=== PATIENT | female | born 1955 | race Caucasian/White ===

== ENCOUNTER → 2021-02-09 | Outpatient (CLI) | payer OTHER | END | disposition home or self-care (01) | LOC: COVID19 15:40 | PROVIDERS: ATTEND Internal Medicine | DX: U07.1 COVID-19 (principal) ==

== ENCOUNTER → 2021-11-09 | Day surgery (SDC) | payer MEDICARE ==
[~2021-11-09] VITALS: Ht 172.7 cm; Wt 79.4 kg
[~2021-11-09] MED LIST: FOSAMAX70 M1 PO; PRAVASTATIN SOD20 MG PO; ROPINIROLE HYD0.5 MG PO
[2021-11-09 06:57] VITALS: BP 117/74
[2021-11-09 08:08] VITALS: BP 129/49
[2021-11-09 08:23] VITALS: BP 119/67
[2021-11-09 08:35] VITALS: BP 116/74
== END | disposition home or self-care (01) ==
LOC: SDC 10-07 09:30
PROVIDERS: ATTEND Ophthalmology
DX: H25.811 Combined forms of age-related cataract, right eye (principal); M81.0 Age-related osteoporosis without current pathological fracture; E78.00 Pure hypercholesterolemia, unspecified; F17.210 Nicotine dependence, cigarettes, uncomplicated; Z90.710 Acquired absence of both cervix and uterus; Z79.899 Other long term (current) drug therapy

== ENCOUNTER → 2022-02-08 | Day surgery (SDC) | payer MEDICARE ==
[~2022-02-08] VITALS: Ht 172.7 cm; Wt 77.1 kg
[~2022-02-08] MED LIST changes: +ALEVE220 MG PO; +ECHINACEA65 MG PO; +EXCEDRIN MIGRA1 EAC1 PO; +GOOD SENSE ASP325 MG PO; +MULTIPLE VITAM1 EAC2 PO; +RIBOFLAVIN PO; +ROSUVASTATIN CA20 MG PO; +TRAMADOL HCL50 MG PO; +VITAMIN C500 M7 PO; +VITAMIN D3125 MC1 PO
[2022-02-08 09:09] VITALS: BP 126/60
[2022-02-08 10:00] VITALS: BP 103/63
[2022-02-08 10:10] VITALS: BP 106/60
[2022-02-08 10:24] VITALS: BP 109/60
== END | disposition home or self-care (01) ==
LOC: SDC 02-03 11:00
PROVIDERS: ATTEND Ophthalmology
DX: H25.812 Combined forms of age-related cataract, left eye (principal); F17.210 Nicotine dependence, cigarettes, uncomplicated; Z79.899 Other long term (current) drug therapy; Z85.828 Personal history of other malignant neoplasm of skin